=== PATIENT | male | born 2000 | race Caucasian/White ===

== ENCOUNTER 2019-09-28 16:52 | Emergency (ER) | payer MEDICAID ==
--- NOTE | 2019-09-28 18:58 | EDM.PDOC ---
ED [facility] GENERAL MEDICAL PROBLEM - General Chief Complaint: Lower Extremity Injury/Pain Stated Complaint: INJURED RIGHT ANKLE Time Seen by Provider: 09/28/19 18:58 Source of Information: Reports: Patient History Limitations: Reports: No Limitations - History of Present Illness INITIAL COMMENTS - FREE TEXT/NARRATIVE: 19 years old male patient presented to the ER with right ankle injury. Patient slipped on ice, twisted his right ankle. Complaining of pain, swelling. Worse with weightbearing. Denies hitting his head. No loss of consciousness. Denies any neck pain or back pain. Denies any other concern or complaint. Denies any focal weakness or numbness anywhere. Right Ankle Pain Score (Numeric/FACES): 5 - Related Data Allergies Allergy/AdvReac Type Severity Reaction Status Date / Time No Known Allergies Allergy Verified 09/28/19 17:14 Home Meds: Home Meds NK [No Known Home Meds] 09/28/19 [History] Past Medical History HEENT History: Reports: Impaired Vision Endocrine/Metabolic History: Reports: Obesity/BMI 30+ - Past Surgical History Head Surgeries/Procedures: Reports: None HEENT Surgical History: Reports: None Endocrine Surgical History: Reports: None Dermatological Surgical History: Reports: None Social & Family History - Tobacco Use Smoking Status *Q: Never Smoker Second Hand Smoke Exposure: No - Caffeine Use Caffeine Use: Reports: Soda - Recreational Drug Use Recreational Drug Use: No Review of Systems - Review of Systems Review Of Systems: Comprehensive ROS is negative, except as noted in HPI. ED EXAM, GENERAL - Physical Exam Exam: See Below Exam Limited By: No Limitations General Appearance: Alert, WD/WN, No Apparent Distress Nose: Normal Inspection, Normal Mucosa, No Blood Head: Atraumatic, Normocephalic Neck: Normal Inspection, Supple, Non-Tender, Full Range of Motion Respiratory/Chest: No Respiratory Distress, Lungs Clear, Normal Breath Sounds, No Accessory Muscle Use, Chest Non-Tender Cardiovascular: Normal Peripheral Pulses, Regular Rate, Rhythm, No Edema, No Gallop, No JVD, No Murmur, No Rub GI/Abdominal: Normal Bowel Sounds, Soft, Non-Tender, No Organomegaly, No Distention, No Abnormal Bruit, No Mass Back Exam: Normal Inspection, Full Range of Motion, NT Extremities: Other (Right ankle swelling, tenderness mainly over the lateral malleolus. CMS intact. Pain limitation of the range of motion.) Neurological: Alert, Oriented, CN II-XII Intact, Normal Cognition, Normal Gait, Normal Reflexes, No Motor/Sensory Deficits Course - Vital Signs Last Recorded V/S: Last Vital Signs Temp 37.8 C 09/28/19 17:17 Pulse 110 H 09/28/19 17:17 Resp 16 09/28/19 17:17 BP 132/74 09/28/19 17:17 Pulse Ox 97 09/28/19 17:17 - Re-Assessments/Exams Free Text/Narrative Re-Assessment/Exam: 09/28/19 19:03 Patient was seen and examined shortly after arrival. Stable. Declined any pain medication at this point. X-ray shows no obvious acute displaced fracture. Only soft tissue swelling. Most likely sprain. Provided with cam boot. Advised toRest , ice, elevation, compression Weight-bearing as tolerated Alternate Tylenol and ibuprofen for pain and discomfort Close follow-up with PCP or orthopedic at 3- 4 days Come back for any concern or any worsening symptom Patient agrees with the plan. Stable for discharge. 09/28/19 19:48 Departure - Departure Time of Disposition: 19:45 Disposition: Home, Self-Care 01 Condition: Good Clinical Impression: Ankle sprain - Discharge Information *PRESCRIPTION DRUG MONITORING PROGRAM REVIEWED*: Not Applicable *COPY OF PRESCRIPTION DRUG MONITORING REPORT IN PATIENT ELGIN: Not Applicable Instructions: Ankle Sprain, [id number] Referrals: PCP,None [Primary Care Provider] - Forms: ED Department Discharge Additional Instructions: Rest, ice, elevation, compression Weight-bearing as tolerated Alternate Tylenol and ibuprofen for pain and discomfort Close follow-up with PCP or orthopedic at 3- 4 days Come back for any concern or any worsening symptom Sepsis Event Note - Evaluation Sepsis Screening Result: No Definite Risk - Focused Exam Vital Signs: Vital Signs Temp Pulse Resp BP Pulse Ox 09/28/19 17:17 37.8 C 110 H 16 132/74 97 09/28/19 17:05 37.8 C 110 H 16 132/74 97 Date Exam was Performed: 09/28/19 Time Exam was Performed: 19:45 - Assessment/Plan Plan: Rest, ice, elevation, compression Weight-bearing as tolerated Alternate Tylenol and ibuprofen for pain and discomfort Close follow-up with PCP or orthopedic at 3- 4 days Come back for any concern or any worsening symptom
--- NOTE | 2019-09-28 18:58 | CRLCR ---
Indication: Pain. Technique: Three views of the right ankle. Comparison: None Findings: Soft tissue swelling is identified bilaterally. The ankle mortise is intact. The talar dome is intact. No acute fracture or subluxation is identified. Impression: Soft tissue swelling laterally. Dictated by Pamela Howell MD @ Sep 28 2019 6:55PM Signed by Dr. Pamela Howell @ Sep 28 2019 6:56PM
== END 2019-09-28 20:08 | disposition home or self-care (01) ==
LOC: JP.ED 16:52
DX: S93.401A Sprain of unspecified ligament of right ankle, initial encounter (principal); E66.9 Obesity, unspecified; W00.0XXA Fall on same level due to ice and snow, initial encounter; X50.1XXA Overexertion from prolonged static or awkward postures, initial encounter
CPT/HCPCS: 73610-RT; 99283-25

== ENCOUNTER 2020-05-15 06:59 | Day surgery (SDC) | payer MEDICAID ==
[~2020-05-15 06:59] MED LIST: Bupivacaine 0.5% 50 ML MDV ONE; Lidocaine 1% with EPINEPHrine 1:100,000 50 ML MDV ONE
[2020-05-15] MEDS ORDERED: fentaNYL 250 MCG/5 ML SDV ONE (07:09)
[2020-05-15] MEDS ORDERED: Neostigmine Methylsulfate 1 MG/ML 5 ML Syringe ONE (07:10)
[2020-05-15] MEDS ORDERED: Rocuronium 50 MG/5 ML Vial ONE (07:10)
[2020-05-15] MEDS ORDERED: Glycopyrrolate 0.2 MG/ML 5 ML MDV ONE (07:10)
[2020-05-15] MEDS ORDERED: Succinylcholine 200 MG/10 ML MDV ONE (07:10)
[2020-05-15] MEDS ORDERED: Ondansetron 4 MG/2 ML SDV ONE (07:10)
[2020-05-15] MEDS ORDERED: Propofol 200 MG/20 ML SDV ONE (07:10)
[2020-05-15] MEDS ORDERED: Dexamethasone 4 MG/ML SDV ONE (07:10)
[2020-05-15] MEDS ORDERED: Dextrose 5%-Lactated Ringers 1,000 ML IV SCH (07:45)
[2020-05-15] MEDS ORDERED: Acetaminophen 500 MG Tab PO ONE (07:45)
[2020-05-15] MEDS ORDERED: Celecoxib 200 MG Cap PO SCH (07:45)
[2020-05-15] MEDS ORDERED: cefOXitin 2 GM in Sodium Chloride 0.9% 50 ML IV ONE (08:30)
[2020-05-15] MEDS ORDERED: Ketamine 50 MG in Sodium Chloride 0.9% 49.5 ML IV SCH (09:00)
[2020-05-15] MEDS ORDERED: Ketamine 500 MG/5 ML MDV IV SCH (09:00)
[2020-05-15] MEDS ORDERED: Meropenem 500 MG SDV ONE (09:50)
[2020-05-15] MEDS ORDERED: Ketorolac 60 MG/2 ML SDV ONE (10:03)
--- NOTE | 2020-05-22 16:26 | OR ---
DATE OF PROCEDURE: 05/15/2020 SURGEON: Toñito Cabrera MD PREOPERATIVE DIAGNOSIS: Pilonidal cyst, status post recent incision and drainage. POSTOPERATIVE DIAGNOSIS: Pilonidal cyst, status post recent incision and drainage. OPERATIVE PROCEDURE: Wide excision of recently drained pilonidal cyst with primary closure (20545). ANESTHESIA: General. INDICATION FOR PROCEDURE: This is a 20-year-old with pilonidal cyst complicated by a recent infection and incision and drainage in the clinic. It has now closed off sufficiently that a wide excision with primary closure would be appropriate. Plan is to proceed with that procedure. Potential risks of the procedure including bleeding, infection, pilonidal cyst, problem recurring were all reviewed, and the patient wishes to proceed. DETAILS OF PROCEDURE: The patient was taken to the operating room and placed in a supine position. After general endotracheal anesthesia was induced, he was placed in a prone position and the sacral and coccygeal areas were prepped and draped. An elliptical incision incorporating the recent incision and drainage area as well as the pore in the midline and extending somewhat inferior to that was made and carried down through the skin and subcutaneous tissue. The plane of dissection remained in the noninflamed level at all points. The cyst was located over the distal sacrum, the coccygeal areas and was then delivered intact with all components appearing to be within the specimen. The wound was then irrigated with a meropenem-containing saline solution and anesthetized with 0.5% Marcaine. The deeper soft tissues were then approximated with 2 layers of 2-0 and 3-0 Vicryl stitch and the skin then closed with mt. A bolster dressing using #1 Prolene stitch configuration was then placed to maintain some pressure over the area as well as stability in these underlying soft tissues and at that point the procedure was then concluded. The patient was taken to the recovery room in satisfactory condition. Toñito Cabrera MD /[id number]
== END 2020-05-15 12:07 | disposition home or self-care (01) ==
LOC: JP.SDS 06:59
PROVIDERS: ATTEND Surgery
DX: L05.91 Pilonidal cyst without abscess (principal); L98.429 Non-pressure chronic ulcer of back with unspecified severity; E66.9 Obesity, unspecified; Z68.34 Body mass index [BMI] 34.0-34.9, adult; Z98.890 Other specified postprocedural states
CPT/HCPCS: 11772; 36415; 80048; 85025; 88304; A9270; J0330; J0694; J1100; J1885; J2185; J2405; J2704; J2710; J3010; J3490; J7050; J7121